=== PATIENT | female | born 1975 | race Caucasian/White ===

== ENCOUNTER → 2020-03-21 15:06 | Outpatient (BNVA) | payer OTHER, BC, SELFPAY | PROVIDERS: Family Provider Nurse Practitioner Family; PCP Nurse Practitioner Family; Visit Provider Internal Medicine Rheumatology | DX: K92.1 Melena (principal) | CPT/HCPCS: 36415; 80053; 85025 ==

== ENCOUNTER → 2021-01-01 13:18 | Outpatient (BNVA) | payer OTHER, BC, SELFPAY | PROVIDERS: Family Provider Nurse Practitioner Family; PCP Nurse Practitioner Family; Visit Provider Nurse Practitioner Family | DX: M54.5 Low back pain (principal); M54.2 Cervicalgia | CPT/HCPCS: 72040; 72100 ==

== ENCOUNTER → 2021-01-18 09:17 | Outpatient (BNVA) | payer OTHER, BC, SELFPAY | PROVIDERS: Family Provider Nurse Practitioner Family; PCP Nurse Practitioner Family; Visit Provider Nurse Practitioner Family | DX: Z13.6 Encounter for screening for cardiovascular disorders (principal) | CPT/HCPCS: 80061; 82947; 83036 ==

== ENCOUNTER → 2021-10-25 09:12 | Outpatient (BNVA) | payer OTHER, BC, SELFPAY | PROVIDERS: Family Provider Nurse Practitioner Family; PCP Nurse Practitioner Family; Visit Provider Nurse Practitioner Family | DX: D50.9 Iron deficiency anemia, unspecified (principal) | CPT/HCPCS: 80053; 82306; 82607; 82746; 83540; 85025 ==

== ENCOUNTER → 2021-11-12 12:53 | Day surgery (SDC) | payer OTHER, BC, SELFPAY ==
[2021-11-12 13:10] VITALS: BP 139/90; PULSE 81; RESP 18; TEMP 36.2; O2SAT 94
[2021-11-12] MEDS: sodium chloride 0.9% 1,000 ML 999 ML IV (13:25)
== END ==
PROVIDERS: PCP Nurse Practitioner Family; Visit Provider Nurse Practitioner Family
DX: E86.0 Dehydration (principal)
CPT/HCPCS: 80048; 81003; 85025; 87086; 96360; J7030

== ENCOUNTER 2021-11-15 12:30 | Outpatient (RCR) | payer OTHER, BC, SELFPAY ==
[2021-11-13] MEDS: sodium chloride 0.9% 1,000 ML 750 ML IV (13:32)
[2021-11-13 13:37] VITALS: BP 149/91; PULSE 82; RESP 18; TEMP 36.5; O2SAT 94
[2021-11-14 13:54] VITALS: BP 145/105; PULSE 80; RESP 18; TEMP 36.4; O2SAT 96
[2021-11-14] MEDS: sodium chloride 0.9% 1,000 ML 750 ML IV (14:05)
[2021-11-15 11:50] VITALS: BP 133/96; PULSE 95; RESP 18; TEMP 36.5; O2SAT 93
[2021-11-15] MEDS: sodium chloride 0.9% 1,000 ML 750 ML IV (11:51)
== END 2021-11-22 23:59 | disposition home or self-care (01) ==
LOC: GILAB 12:30
PROVIDERS: PCP Nurse Practitioner Family; Visit Provider Nurse Practitioner Family
DX: E86.0 Dehydration (principal)
CPT/HCPCS: 96360; 96361; J7030

== ENCOUNTER → 2021-11-19 16:35 | Outpatient (BNVA) | payer OTHER, BC, SELFPAY | PROVIDERS: PCP Nurse Practitioner Family; Visit Provider Nurse Practitioner Family | DX: E86.0 Dehydration (principal); N39.0 Urinary tract infection, site not specified | CPT/HCPCS: 81003 ==

== ENCOUNTER → 2021-12-04 16:46 | Outpatient (BNVA) | payer OTHER, BC, SELFPAY | PROVIDERS: PCP Nurse Practitioner Family; Visit Provider Nurse Practitioner Family | DX: R30.0 Dysuria (principal) | CPT/HCPCS: 81003 ==

== ENCOUNTER → 2022-01-06 10:19 | Outpatient (BNVA) | payer OTHER, BC, SELFPAY | PROVIDERS: PCP Nurse Practitioner Family; Visit Provider Family Medicine | DX: Z90.3 Acquired absence of stomach [part of] (principal) | CPT/HCPCS: 80053; 82306; 82607; 82746; 83540; 85025 ==

== ENCOUNTER → 2022-02-03 12:08 | Outpatient (BNVA) | payer OTHER, BC, SELFPAY | PROVIDERS: PCP Nurse Practitioner Family; Visit Provider Nurse Practitioner Family | DX: E86.0 Dehydration (principal) | CPT/HCPCS: 80048; 85025 ==

== ENCOUNTER 2022-02-20 13:18 | Outpatient (RCR) | payer OTHER, BC, SELFPAY ==
[2022-02-04] MEDS: dextrose 5% 1,000 ML 750 ML IV (13:15)
[2022-02-04 14:19] VITALS: BP 135/84; PULSE 81; RESP 18; TEMP 36.3; O2SAT 98
[2022-02-05] MEDS: dextrose 5% 1,000 ML 800 ML IV (12:44)
[2022-02-05 12:46] VITALS: BP 132/77; PULSE 87; RESP 18; TEMP 35.9; O2SAT 96
[2022-02-06 11:30] VITALS: BP 116/83; PULSE 79; RESP 18; TEMP 36.4; O2SAT 95
[2022-02-06] MEDS: dextrose 5% 1,000 ML 750 ML IV (11:35)
[2022-02-07] MEDS: dextrose 5% 1,000 ML 750 ML IV (10:13)
[2022-02-07 10:15] VITALS: BP 146/97; PULSE 66; RESP 18; TEMP 36.7; O2SAT 95
[2022-02-18] MEDS: dextrose 5% 1,000 ML 999 ML IV (13:35)
[2022-02-18 14:09] VITALS: BP 142/95; PULSE 83; RESP 18; TEMP 36.9; O2SAT 98
[2022-02-19] MEDS: dextrose 5% 1,000 ML 999 ML IV (11:49)
[2022-02-19 11:54] VITALS: BP 162/101; PULSE 78; RESP 18; TEMP 36.4; O2SAT 98
[2022-02-20] MEDS: dextrose 5% 1,000 ML 999 ML IV (13:57)
[2022-02-20 14:03] VITALS: BP 147/94; PULSE 77; RESP 18; TEMP 36.1; O2SAT 98
== END 2022-02-20 23:59 | disposition home or self-care (01) ==
LOC: GILAB 13:18
PROVIDERS: PCP Nurse Practitioner Family; Visit Provider Nurse Practitioner Family
DX: E86.0 Dehydration (principal)
CPT/HCPCS: 96360

== ENCOUNTER 2022-02-28 12:30 | Outpatient (RCR) | payer OTHER, BC, SELFPAY ==
[2022-02-21] MEDS: dextrose 5% 1,000 ML 750 ML IV (10:03)
[2022-02-21 10:07] VITALS: BP 145/88; PULSE 71; RESP 18; TEMP 36.8; O2SAT 96
[2022-02-24] MEDS: dextrose 5% 1,000 ML 999 ML IV (13:03)
[2022-02-24 13:11] VITALS: BP 134/96; PULSE 81; RESP 18; TEMP 36.4; O2SAT 99
[2022-02-25 12:45] VITALS: BP 142/92; PULSE 90; RESP 18; TEMP 37; O2SAT 95
[2022-02-25] MEDS: dextrose 5% 1,000 ML 999 ML IV (12:47)
[2022-02-26] MEDS: dextrose 5% 1,000 ML 750 ML IV (12:30)
[2022-02-26 12:39] VITALS: BP 151/99; PULSE 82; RESP 18; TEMP 36.6; O2SAT 93
[2022-02-27] MEDS: dextrose 5% 1,000 ML 750 ML IV (12:04)
[2022-02-27 12:08] VITALS: BP 146/103; PULSE 79; RESP 18; TEMP 36.3; O2SAT 99
[2022-02-28] MEDS: dextrose 5% 1,000 ML 750 ML IV (12:39)
[2022-02-28 12:42] VITALS: BP 159/102; PULSE 78; RESP 18; TEMP 36.7; O2SAT 97
== END 2022-03-22 23:59 | disposition home or self-care (01) ==
LOC: GILAB 12:30
PROVIDERS: PCP Nurse Practitioner Family; Visit Provider Family Medicine
DX: E86.0 Dehydration (principal)
CPT/HCPCS: 96360; 96365

== ENCOUNTER → 2022-05-12 12:36 | Outpatient (BNVA) | payer OTHER, BC, SELFPAY | PROVIDERS: PCP Nurse Practitioner Family; Visit Provider Family Medicine | DX: E86.0 Dehydration (principal); K52.9 Noninfective gastroenteritis and colitis, unspecified; A04.8 Other specified bacterial intestinal infections; K21.9 Gastro-esophageal reflux disease without esophagitis | CPT/HCPCS: 80053; 82784; 83516; 83630; 85025; 87338; 87493; 87506 ==

== ENCOUNTER 2022-05-22 13:12 | Outpatient (RCR) | payer OTHER, BC, SELFPAY ==
[2022-05-15 08:31] VITALS: BP 125/85; PULSE 74; RESP 18; TEMP 36.6; O2SAT 97
[2022-05-15] MEDS: dextrose 5% 1,000 ML 800 ML IV (08:32)
[2022-05-16] MEDS: dextrose 5% 1,000 ML 800 ML IV (08:06)
[2022-05-16 08:07] VITALS: BP 130/84; PULSE 79; RESP 18; TEMP 36.3; O2SAT 97
[2022-05-19] MEDS: dextrose 5% 1,000 ML 999 ML IV (12:42)
[2022-05-19 12:44] VITALS: BP 137/84; PULSE 61; RESP 18; TEMP 36.3; O2SAT 96
--- NOTE | 2022-05-20 08:56 | PC.NURSE ---
Pt called and unable to make it to appoinment today for hydration.
--- NOTE | 2022-05-21 09:53 | PC.NURSE ---
Pt called to cancel appointment due to conflict with work.
[2022-05-22] MEDS: dextrose 5% 1,000 ML 800 ML IV (12:55)
[2022-05-22 12:58] VITALS: BP 126/81; PULSE 81; RESP 18; TEMP 36.6; O2SAT 95
== END 2022-05-22 23:59 | disposition home or self-care (01) ==
LOC: GILAB 13:12
PROVIDERS: PCP Nurse Practitioner Family; Visit Provider Family Medicine
DX: E86.0 Dehydration (principal)
CPT/HCPCS: 96360; 96361

== ENCOUNTER 2022-05-28 13:00 | Outpatient (RCR) | payer OTHER, BC, SELFPAY ==
[2022-05-23] MEDS: dextrose 5% 1,000 ML 800 ML IV (10:15)
[2022-05-23 10:18] VITALS: BP 149/97; PULSE 74; RESP 18; TEMP 36.5; O2SAT 96
== END 2022-06-22 23:59 | disposition home or self-care (01) ==
LOC: GILAB 13:00
PROVIDERS: PCP Nurse Practitioner Family; Visit Provider Family Medicine
DX: E86.0 Dehydration (principal)
CPT/HCPCS: 96360; 96361

== ENCOUNTER → 2022-09-08 09:02 | Outpatient (BNVA) | payer OTHER, BC, SELFPAY | PROVIDERS: PCP Nurse Practitioner Family; Visit Provider Family Medicine | DX: E86.0 Dehydration (principal) | CPT/HCPCS: 80053; 82607; 83735; 85025 ==

== ENCOUNTER 2022-09-24 07:48 | Outpatient (CLI) | payer OTHER, BC, SELFPAY ==
--- NOTE | 2022-09-24 07:53 | MM_ITS ---
WS: [id number] DIAGNOSTIC BILATERAL DIGITAL BREAST TOMOSYNTHESIS MAMMOGRAPHY WITH CAD LEFT breast ultrasound, limited HISTORY: Palpable COMPARISON: None available. TECHNIQUE: Bilateral craniocaudad, mediolateral oblique, and mediolateral views are submitted with to mosynthesis and SM. Spot compression LEFT CC. Computer aided detection utilized. Breast composition: There are scattered areas of fibroglandular density. No suspicious masses or dist ortion. Palpable markers are placed in the upper outer LEFT breast at an anterior to middle depth. Th ere is no underlying abnormality identified. LEFT breast ultrasound, limited. Ultrasound of the LEFT breast is directed towards the upper outer quadrant. There is no mass identifi ed. Patient directed credit administration manager to the palpable areas. Normal fibroglandular tissue. MM/[place] [id number] IMPRESSION: BI-RADS: 2-Benign FOLLOW UP: 1 Year Follow-up
--- NOTE | 2022-09-24 08:44 | US_ITS ---
WS: [id number] DIAGNOSTIC BILATERAL DIGITAL BREAST TOMOSYNTHESIS MAMMOGRAPHY WITH CAD LEFT breast ultrasound, limited HISTORY: Palpable COMPARISON: None available. TECHNIQUE: Bilateral craniocaudad, mediolateral oblique, and mediolateral views are submitted with to mosynthesis and SM. Spot compression LEFT CC. Computer aided detection utilized. Breast composition: There are scattered areas of fibroglandular density. No suspicious masses or dist ortion. Palpable markers are placed in the upper outer LEFT breast at an anterior to middle depth. Th ere is no underlying abnormality identified. LEFT breast ultrasound, limited. Ultrasound of the LEFT breast is directed towards the upper outer quadrant. There is no mass identifi ed. Patient directed logging tractor operator to the palpable areas. Normal fibroglandular tissue. US/US breast LT limited* [id number] IMPRESSION: BI-RADS: 2-Benign FOLLOW UP: 1 Year Follow-up
== END 2022-09-24 07:49 | disposition home or self-care (01) ==
LOC: RAD 07:49
PROVIDERS: PCP Family Medicine; Visit Provider Family Medicine
DX: N63.20 Unspecified lump in the left breast, unspecified quadrant (principal)
CPT/HCPCS: 76642; 77062; 77063; 77067

== ENCOUNTER → 2022-10-14 08:33 | Outpatient (BNVA) | payer OTHER, BC, SELFPAY | PROVIDERS: PCP Family Medicine; Visit Provider Nurse Practitioner Family | DX: M25.50 Pain in unspecified joint (principal); R23.3 Spontaneous ecchymoses; R53.83 Other fatigue | CPT/HCPCS: 80053; 82306; 82607; 82728; 82746; 83550; 83735; 84443; 84550; 85025; 85651; 86038; 86140; 86200; 86431 ==

== ENCOUNTER 2022-10-22 15:00 | Outpatient (RCR) | payer OTHER, BC, SELFPAY ==
[2022-10-21] MEDS: sodium chloride 0.9% 1,000 ML 999 ML IV (13:40)
[2022-10-21 13:56] VITALS: BP 141/101; PULSE 95; RESP 18; TEMP 36.8; O2SAT 96
[2022-10-22] MEDS: sodium chloride 0.9% 1,000 ML 999 ML IV (15:30)
[2022-10-22 15:31] VITALS: BP 120/81; PULSE 64; RESP 18; TEMP 36.7; O2SAT 97
== END 2022-10-22 23:59 | disposition home or self-care (01) ==
LOC: GILAB 15:00
PROVIDERS: PCP Family Medicine; Visit Provider Family Medicine
DX: E86.0 Dehydration (principal)
CPT/HCPCS: 36569; 96360; C1751; J7030

== ENCOUNTER 2022-10-24 13:00 | Outpatient (RCR) | payer OTHER, BC, SELFPAY ==
[2022-10-23] MEDS: sodium chloride 0.9% 1,000 ML 999 ML IV (10:08)
[2022-10-23 10:10] VITALS: BP 124/97; PULSE 74; RESP 18; TEMP 36.4; O2SAT 98
[2022-10-24] MEDS: sodium chloride 0.9% 1,000 ML 999 ML IV (12:43)
[2022-10-24 12:45] VITALS: BP 148/95; PULSE 59; RESP 18; TEMP 36.9; O2SAT 94
--- NOTE | 2022-10-24 14:02 | PC.NURSE ---
Midline cath to right upper arm discontinued. 10 cm removed. Cath intact. Pressure held for approx 5 minutes. No signs of bleeding or hematoma noted. Pt instructed on S&S of infection and bleeding and to return to ER or contact PCP for concerns.
== END 2022-11-22 23:59 | disposition home or self-care (01) ==
LOC: GILAB 13:00
PROVIDERS: PCP Family Medicine; Visit Provider Family Medicine
DX: E86.0 Dehydration (principal)
CPT/HCPCS: 96360; J7030

== ENCOUNTER → 2022-12-04 13:25 | Outpatient (BNVA) | payer OTHER, BC, SELFPAY | PROVIDERS: PCP Family Medicine; Visit Provider Family Medicine | DX: E86.0 Dehydration (principal); E53.8 Deficiency of other specified B group vitamins | CPT/HCPCS: 80053; 82607; 85025 ==

== ENCOUNTER → 2023-01-02 10:37 | Outpatient (BNVA) | payer OTHER, BC, SELFPAY | PROVIDERS: PCP Family Medicine; Visit Provider Family Medicine | DX: Z13.6 Encounter for screening for cardiovascular disorders (principal) | CPT/HCPCS: 80061; 82947; 83036 ==

== ENCOUNTER 2023-01-12 15:10 | Outpatient (CLI) | payer OTHER, BC, SELFPAY ==
[2023-01-12] MEDS: iohexol 350 mg/mL 500 mL Btl (per mL) IV (15:35)
[2023-01-12] MEDS: iohexol 350 mg/mL 500 mL Btl (per mL) PO (15:36)
--- NOTE | 2023-01-12 16:00 | CT_ITS ---
WS: [id number] CT ABDOMEN NON-CONTRAST PLUS CONTRAST TECHNIQUE: Noncontrast CT of the abdomen and contrast-enhanced CT of the abdomen with coronal and sag ittal reformatted images. CLINICAL INFORMATION: extreme right abdominal pain COMPARISON: None. DLP: 1012.[address] scans at [facility] [place] use at least one of these dose optimization techniques: automated e xposure control; mA and/or kV adjustment per patient size (includes targeted exams where dose is matc hed to clinical indication); or iterative reconstruction. FINDINGS: Mild diffuse fatty infiltration liver. Prior cholecystectomy. Small amount of biliary air likely ashkan gn. Mild dilatation of the common bile duct likely physiologic postcholecystectomy. This tapers yamilka lly at the pancreatic head. Common bile duct measures 7.5 mm. Normal pancreatic head. Normal portal v ein and splenic vein. Splenomegaly measuring 13.3 cm [id number]. Prior postoperative changes gastri c sleeve procedure. Small esophageal hiatal hernia. Contrast is seen in the duodenum and small bowel. Adrenal glands are normal. No hydronephrosis in either kidney. Normal renal parenchymal enhancement. No proximal obstructing renal or ureteral calculi. Tiny fat-containing umbilical hernia. Normal calib er upper abdominal aorta. Celiac and SMA are patent. CT/CT abdomen wo/w con [id number] IMPRESSION: 1. Prior cholecystectomy. Small amount of biliary air likely benign. 2. Mild dilatation of the common bile duct likely physiologic postcholecystect maxi. This can be further evaluated MRCP concern for choledocholithiasis. 3. Prior gastric sleeve repair with small esophageal hiatal hernia. Contrast i s seen within the stomach and small bowel. 4. No hydronephrosis in either kidney. Normal renal parenchymal enhancement. 5. Mild hepatomegaly and splenomegaly. Spleen measures 13.3 cm [id number]. 6. No other acute findings.
== END 2023-01-12 15:11 | disposition home or self-care (01) ==
LOC: RAD 15:10
PROVIDERS: PCP Family Medicine; Visit Provider Family Medicine
DX: Z90.49 Acquired absence of other specified parts of digestive tract (principal); K44.9 Diaphragmatic hernia without obstruction or gangrene; R16.0 Hepatomegaly, not elsewhere classified; R16.1 Splenomegaly, not elsewhere classified
CPT/HCPCS: 74170; Q9967

== ENCOUNTER 2023-01-27 13:23 | Outpatient (CLI) | payer OTHER, BC, SELFPAY ==
--- NOTE | 2023-01-27 13:45 | MR_ITS ---
WS: [id number] MRCP (MAGNETIC RESONANCE CHOLANGIOPANCREATOGRAPHY) HISTORY: enlarged bile duct on ct. COMPARISON: CT 01/12/2023 TECHNIQUE: Multiple sequences are performed to evaluate the intra and extrahepatic ducts. Prior cholecystectomy. Common bile duct is mildly dilated throughout its course measuring up to 10 mm . No intraluminal filling defect. Normal tapering of the common bile duct towards the ampulla of Vate r. The pancreatic duct is not dilated. No significant intrahepatic bile duct dilatation. Normal size liver and spleen. No hepatic masses. Kidneys are normal size. No renal mass. No adrenal abnormality. MR/MR MRCP [id number] IMPRESSION: 1. Mildly dilated common bile duct measures up to 10 mm. Probably physiologic and related to the cholecystectomy. 2. There is no pancreatic duct dilatation. No intraluminal mass or stone in th e common bile duct. 3. Prior cholecystectomy.
== END 2023-01-27 13:24 | disposition home or self-care (01) ==
LOC: RAD 13:32
PROVIDERS: PCP Family Medicine; Visit Provider Family Medicine
DX: K83.8 Other specified diseases of biliary tract (principal); Z90.49 Acquired absence of other specified parts of digestive tract
CPT/HCPCS: 74181

== ENCOUNTER 2023-02-20 10:35 | Emergency (ER) | payer OTHER, BC, SELFPAY ==
[2023-02-20 10:47] VITALS: BP 152/106; PULSE 86; RESP 17; TEMP 36.8; O2SAT 97; BMI 34.0
--- NOTE | 2023-02-20 11:01 | W.ED.ABDPA2 ---
HPI - Abdominal Pain General: Chief Complaint: Abdominal Pain Stated Complaint: possible kidney stones Time Seen by Provider: 02/20/23 11:00 History of Present Illness: Ms. Gaviria is a 47-year-old lady history of abdominal surgeries presented to the emergency department for concern over possible kidney stone or UTI. She reports yesterday noticing mild discomfort with urinating however began to have severe right flank and back pain starting about 7:30 PM without known specific provoking event. She had urinary hesitancy and dysuria associated with this. She has also had nausea associated with the pain. She tried [id number] medications without significant relief and was seen in clinic this morning and found to have blood in urine as well as evidence of urinary tract infection and referred to the emergency department for further evaluation. She denies history of kidney stones. She did hear a possible stone being passed into the toilet earlier today but is unsure. No other specific changes in health, exacerbating, or alleviating factors identified. Onset (ago): hour(s) Pain Consistency: constant Location: R flank Severity: severe Quality: aching and sharp Radiation: RLQ Migration to: no migration Exacerbating factors: movement Relieving factors: nothing Associated Symptoms: Reports diarrhea (Chronic, unchanged) and nausea; Denies chills, fever(s) and vomiting Treatments prior to arrival: other (otc AZO) Review of Systems General: Reports: 10 or more systems reviewed and unremarkable except in HPI and below Const: Denies: fever(s) or chills GI: Reports: nausea and diarrhea (Chronic, unchanged); Denies: vomiting PFSH ED PFSH: Surgical History History of cholecystectomy History of hernia repair History of hysterectomy Family History Father Cancer colon Grandmother No problems noted. Social History Smoking and tobacco status: never smoked Second hand smoke exposure: No Smoking risk assessment/counseling performed?: No Alcohol intake: unknown Desire information about alcohol rehabilitation?: No Counseling given: No Desire information about substance/drug rehabilitation?: No Counseling given: No Adopted: No Caregiver/support person: No Lives independently: Yes Household members: spouse and children Housing: House Marital status: Number of children: 3 service: No Current occupational status: employed [place] [employer] [place]ets and animals: Yes Pets & animals: dog(s) Current gender identity: Female Physical Exam Const: COMMON NORMALS: alert GENERAL APPEARANCE: cooperative and well developed HENMT: COMMON NORMALS: normocephalic and atraumatic HEAD & SCALP: normocephalic and atraumatic Eye: COMMON NORMALS: conjunctivae normal CONJUNCTIVA: Yes conjunctivae normal SCLERA: sclerae normal Neck/C-Spine: COMMON NORMALS: supple GENERAL: Yes trachea midline Resp: COMMON NORMALS: clear to auscultation bilaterally EFFORT & INSPECTION: Yes able to speak in complete sentences AUSCULTATION: clear to auscultation bilaterally Cardio: COMMON NORMALS: regular rate and regular rhythm RATE: regular rate RHYTHM: regular rhythm GI: COMMON NORMALS: Soft to palpation PALPATION: Yes Soft to palpation, Yes Tenderness to palpation present (GI) (Right flank and right lower quadrant), No Guarding due to palpation present (GI) and No Rigid due to palpation : BLADDER/KIDNEY EXAM: Yes CVA tenderness Back/Pelvis: GENERAL BACK: Yes CVA tenderness CVA tenderness: right Extremity: GENERAL: Yes normal exam except as noted and No edema Neuro: COMMON NORMALS: moves all extremities SENSORIUM/ORIENTATION: Yes alert and No Orientation impaired Psych: COMMON NORMALS: mental status grossly normal and Normal thought process present THOUGHT PROCESS: Normal thought process present Course Vital Signs: Vital signs: Vital Signs Temperature 98.3 F 02/20/23 10:47 Pulse Rate 84 02/20/23 15:27 Respiratory Rate 18 02/20/23 15:27 Blood Pressure 138/99 02/20/23 13:09 Pulse Oximetry 99 02/20/23 15:27 Oxygen Delivery Me thod Room Air 02/20/23 13:09 MDM - Abdominal Pain Medical Decision Making 47-year-old lady presenting to the emergency department for abdominal concerns. Exam as above, abdominal tenderness without evidence of acute surgical abdomen. Patient is nontoxic. Labs notable for hemoconcentration, no leukocytosis. Metabolic panel without acute derangement to explain symptoms. Alk phos similarly elevated, normal lipase. Urinalysis with mild squamous epithelial contamination though may be still concerning for UTI. Given exam and clinical history CT imaging is appropriate. CT demonstrates hepatomegaly and splenomegaly, normal appendix, no hydronephrosis or kidney stone. Patient treated during ED course with antiemetic, analgesia, IV fluids. She was also given antibiotics. Ultimately she felt improved and was able to tolerate p.o. intake. Most likely etiology of patient symptoms is pyelonephritis. The results of ED evaluation were discussed with the patient including prescriptions and/or symptomatic cares (if applicable) including appropriate and responsible use, followup plan, and return precautions. The patient verbalized understanding and felt safe for discharge. Medical Records I reviewed the patient's medical records. Lab Data I reviewed the patient's lab results. 02/20/23 11:10 02/20/23 11:10 Labs/Radiology: Radiology Impressions Abdomen/Pelvis CT 02/20/23 12:29 IMPRESSION: 1. No obstructing renal or ureteral calculi. No hydronephrosis. 2. Hepatomegaly with splenomegaly 3. Prior cholecystectomy with prominent common bile duct unchanged. 4. Prior gastric sleeve procedure with small esophageal hiatal hernia. 5. Prior hysterectomy. 6. Normal appendix in the RIGHT lower quadrant. Laboratory Results WBC 8.3 10^3/uL (4.0-10.0) 02/20/23 11:10 RBC 5.04 10^6/uL (4.1-5.3) 02/20/23 11:10 Hgb 15.5 g/dL (11.5-15.3) H 02/20/23 11:10 Hct 47.7 % (37.0-47.0) H 02/20/23 11:10 MCV 94.6 fl (81-99) 02/20/23 11:10 MCH 30.8 pg (28.0-34.0) 02/20/23 11:10 MCHC 32.5 g/dL (30.0-36.0) 02/20/23 11:10 RDW 12.7 % (12.1-15.1) 02/20/23 11:10 Plt Count 299 10^3/cmm (130-400) 02/20/23 11:10 MPV 9.6 fL (7.4-10.4) 02/20/23 11:10 Neut % (Auto) 74.2 % 02/20/23 11:10 Lymph % (Auto) 18.0 % 02/20/23 11:10 [place] % (Auto) 6.5 % 02/20/23 11:10 Eos % (Auto) 0.6 % 02/20/23 11:10 Baso % (Auto) 0.5 % 02/20/23 11:10 Neut # (Auto) 6.13 10^3/uL (1.8-7.7) 02/20/23 11:10 Lymph # (Auto) 1.5 10^3/uL (0.8-4.8) 02/20/23 11:10 [place] # (Auto) 0.5 10^3/uL (0.2-0.9) 02/20/23 11:10 Eos # (Auto) 0.1 10^3/uL (0.0-0.8) 02/20/23 11:10 Baso # (Auto) 0.0 10^3/uL (0.0-0.1) 02/20/23 11:10 Nucleated RBC % (auto) 0 % 02/20/23 11:10 Nucleated RBCs # 0.0 /100WBC 02/20/23 11:10 Sodium 142 mmol/L (136-145) 02/20/23 11:10 Potassium 4.3 mmol/L (3.5-5.1) 02/20/23 11:10 Chloride 104 mmol/L (98-107) 02/20/23 11:10 Carbon Dioxide 27 mmol/L (22-29) 02/20/23 11:10 Anion Gap 15.3 (5-19) 02/20/23 11:10 BUN 10 mg/dL (6-20) 02/20/23 11:10 Creatinine 0.7 mg/dL (0.5-0.9) 02/20/23 11:10 GFR Calculation 89.3 mL/min (90-130) L 02/20/23 11:10 Glucose 90 mg/dL (65-115) 02/20/23 11:10 Calculated Osmolality 293 mOsm/kg (285-295) 02/20/23 11:10 Calcium 9.5 mg/dL (8.5-10.5) 02/20/23 11:10 Total Bilirubin 0.6 mg/dL (0.15-1.2) 02/20/23 11:10 AST 26 U/L (0-32) 02/20/23 11:10 ALT 20 U/L (0-33) 02/20/23 11:10 Alkaline Phosphatase 124 U/L (35-105) H 02/20/23 11:10 Total Protein 7.0 g/dL (6.6-8.7) 02/20/23 11:10 Albumin 4.1 g/dL (3.5-5.2) 02/20/23 11:10 Globulin 2.9 g/dL (1.3-4.6) 02/20/23 11:10 Lipase 22 U/L (13-60) 02/20/23 11:10 HCG, Qual Negative (Negative) 02/20/23 11:10 Urine Color Colorless (Yellow) 02/20/23 11:31 Urine Appearance Cloudy (CLEAR) A 02/20/23 11:31 Urine pH 8 (5-7) H 02/20/23 11:31 Ur Specific [place] 1.015 (1.005-1.030) 02/20/23 11:31 Urine Protein Trace (Negative) 02/20/23 11:31 Urine Glucose (UA) Norm (Normal) 02/20/23 11:31 Urine Ketones Negative (Negative) 02/20/23 11:31 Urine Blood Trace (Negative) H 02/20/23 11:31 Urine Nitrate Positive (Negative) H 02/20/23 11:31 Urine Bilirubin 1+ (Negative) H 02/20/23 11:31 Prot Sulfosalicylic Acd Positive (Negative) 02/20/23 11:31 Urine Urobilinogen 1 mg/dL (Negative) H 02/20/23 11:31 Ur Leukocyte Esterase 1+ (Negative) H 02/20/23 11:31 Urine RBC 10-15 /hpf (0-2) H 02/20/23 11:31 Urine WBC 25-40 /hpf (0-5) H 02/20/23 11:31 Ur Squamous Epith Cells 5-10 /hpf (0-5) H 02/20/23 11:31 Amorphous Sediment Not Reportable 02/20/23 11:31 Urine Bacteria 2+ /hpf (NONE) H 02/20/23 11:31 Discharge Plan Discharge Patient Disposition: Home Clinical Impression: Pyelonephritis of right kidney Condition: Stable Prescriptions: New ondansetron 4 mg tablet,disintegrating 4 mg PO Q8H PRN (Reason: nausea and vomiting) Qty: 15 0RF No Action fexofenadine-pseudoephedrine [Carla-D 12 Hour] 60-120 mg tablet extended release 12 hr 1 tab PO Q12H PRN (Reason: allergy symptoms) Qty: 30 0RF Proctofoam HC 1-1 % foam 1 applic MD QID PRN (Reason: itching) Qty: 10 11RF (DME) NS IV to be infused over 2-4 hours. give 1 L a day for 5 days. See Rx Instructions .Route .MEDSUPPLY Qty: 5 0RF Rx Instructions: Please place Picc line for the fluids. alprazolam [Xanax] 0.5 mg tablet 0.5 mg PO BID PRN (Reason: anxiety) Qty: 14 0RF ondansetron HCl 8 mg tablet See Rx Instructions .ROUTE .COMPLEX Qty: 30 2RF Dose Instruction: TAKE ONE TABLET BY MOUTH EVERY 8 HOURS NEEDED FOR NAUSEA AND VOMITING. Rx Instructions: TAKE ONE TABLET BY MOUTH EVERY 8 HOURS NEEDED FOR NAUSEA AND VOMITING. valacyclovir 1 gram tablet 1,000 mg PO TID Qty: 30 1RF gabapentin 100 mg capsule 100 mg PO TID 30 Days Qty: 90 3RF diphenoxylate-atropine 2.5-0.025 mg Tablet 1 tab PO QID PRN (Reason: Diarrhea) phenazopyridine 100 mg Tablet 100 mg PO TID nystatin 100,000 unit/gram cream 1 applic topical DAILY PRN (Reason: Rash) Discharge Orders: Discharge ED (Routine); Ordered 02/20/23 Ordered By: Saurabh Miranda Referrals: Pauly Fischer MD [Primary Care Provider] - Discharge Diet: Usual diet Discharge Activity: Increase activity as tolerated Patient Instructions: Urinary Tract Infection in Women (ED), Kidney Infection (ED), Opioid Safety Activity Restrictions/Additional Instructions: Thank you for visiting the emergency department. You were seen and evaluated for flank pain. The most likely cause of your symptoms is urinary tract infection with involvement of the kidney. This will be treated with antibiotics. I will also prescribe pain medications, use these cautiously as discussed, and antinausea medication. You may use elox-ntr-ymdyfls medications such as acetaminophen and ibuprofen for pain however please do not exceed the daily recommended dosage as listed on the packaging and please keep in mind that many namebrand medications contain the same active ingredients. Please avoid these medications if previously instructed to do so by another physician due to other underlying medical condition. Please follow-up with your primary care provider. Return to the emergency department for worsening symptoms, fevers, inability to urinate, or anything else that you are concerned about and feel needs emergency department evaluation. Coding Level of Care Code ED Central Office Equipment Engineer for Amada Ramirez
[2023-02-20 11:25] LABS: Basophils % 0.5 %; Eosinophils # 0.1 10^3/uL (0.0-0.8); Eosinophils % 0.6 %; Hematocrit 47.7 % (37.0-47.0); Hemoglobin 15.5 g/dL (11.5-15.3); Lymphocytes # 1.5 10^3/uL (0.8-4.8); Mean Corpuscular HGB Conc 32.5 g/dL (30.0-36.0); Mean Corpuscular Hemoglobin 30.8 pg (28.0-34.0); Mean Corpuscular Volume 94.6 fl (81-99); Mean Platelet Volume 9.6 fL (7.4-10.4); Monocytes # 0.5 10^3/uL (0.2-0.9); Monocytes % 6.5 %; Neutrophils # 6.13 10^3/uL (1.8-7.7); Neutrophils % 74.2 %; Nucleated Red Blood Cells % 0 %; Platelet Count 299 10^3/cmm (130-400); Red Blood Count 5.04 10^6/uL (4.1-5.3); Red Cell Distribution Width 12.7 % (12.1-15.1); White Blood Count 8.3 10^3/uL (4.0-10.0)
[2023-02-20] MEDS: sodium chloride 0.9% 1,000 ML 999 ML IV (11:25)
[2023-02-20] MEDS: ketorolac 30 mg/mL INJ 15 MG IVP (11:26)
[2023-02-20] MEDS: tamsulosin 0.4 mg Capsule PO (11:26)
[2023-02-20] MEDS: ondansetron 2 mg/ML SDV 2 mL 4 MG IVP ×2 (11:26→14:08)
[2023-02-20] MEDS: morphine 4 mg/mL SDV 1 mL IVP (11:26)
[2023-02-20 11:30] VITALS: PULSE 87; RESP 16; O2SAT 97
[2023-02-20 11:40] LABS: Alanine Aminotransferase 20 U/L (0-33); Albumin Level 4.1 g/dL (3.5-5.2); Alkaline Phosphatase 124 U/L (35-105); Anion Gap 15.3 (5-19); Aspartate Amino Transferase 26 U/L (0-32); Blood Urea Nitrogen 10 mg/dL (6-20); Calcium 9.5 mg/dL (8.5-10.5); Carbon Dioxide 27 mmol/L (22-29); Chloride 104 mmol/L (98-107); Globulin 2.9 g/dL (1.3-4.6); Glomerular Filtration Rate 89.3 mL/min (90-130); Glucose 90 mg/dL (65-115); Lipase 22 U/L (13-60); Osmolality Calculated 293 mOsm/kg (285-295); Potassium 4.3 mmol/L (3.5-5.1); Sodium 142 mmol/L (136-145); Total Bilirubin 0.6 mg/dL (0.15-1.2)
[2023-02-20 11:46] LABS: HCG, Serum Qual Negative (Negative)
[2023-02-20] MEDS: fentaNYL 50 mcg/mL INJ 2mL IVP ×2 (11:46→13:15)
[2023-02-20 12:25] LABS: Add Urine Microscopic? YES; Bilirubin Urine 1+ (Negative); Blood Urine Trace (Negative); Glucose Urine UA Norm (Normal); Ketones Urine Negative (Negative); Leukocyte Esterase Urine 1+ (Negative); Nitrate Urine Positive (Negative); Protein Urine Trace (Negative); Specific Gravity, Urine 1.015 (1.005-1.030); Urine Appearance Cloudy (CLEAR); Urine Color Colorless (Yellow); Urobilinogen Urine 1 mg/dL (Negative); pH Urine 8 (5-7)
[2023-02-20 12:26] LABS: Add Urine Culture? Yes; Bacteria Urine 2+ /hpf; Sulfosalicylic Acid Urine Positive (Negative); WBC Urine 25-40 /hpf (0-5)
--- NOTE | 2023-02-20 12:29 | CT_ITS ---
WS: [id number] CT ABDOMEN PELVIS TECHNIQUE: Noncontrast CT of the abdomen and pelvis with coronal and sagittal reformatted images. CLINICAL INFORMATION: R flank pain, hematuria COMPARISON: CT abdomen January 12, 2023. MRCP January 27, 2023. DLP: 846.[address] scans at [facility] use at least one of these dose optimization techniques: automated e xposure control; mA and/or kV adjustment per patient size (includes targeted exams where dose is matc hed to clinical indication); or iterative reconstruction. FINDINGS: Prior cholecystectomy. Prior gastric sleeve procedure with small esophageal hiatal hernia. Mild hepat omegaly and splenomegaly. Hysterectomy. Tiny fat-containing umbilical hernia. Lung bases are well aer ated. Noncontrast pancreas appears normal. Prominent common bile duct unchanged from previous likely physiologic postcholecystectomy. Adrenal glands are normal. No hydronephrosis in either kidney. Sigmoid diverticulosis. Normal appendix in the RIGHT lower quadrant. No free fluid in the abdomen or pelvis. Normal caliber abdominal aorta. CT/CT kidney stone [id number] IMPRESSION: 1. No obstructing renal or ureteral calculi. No hydronephrosis. 2. Hepatomegaly with splenomegaly 3. Prior cholecystectomy with prominent common bile duct unchanged. 4. Prior gastric sleeve procedure with small esophageal hiatal hernia. 5. Prior hysterectomy. 6. Normal appendix in the RIGHT lower quadrant.
[2023-02-20 13:09] VITALS: BP 138/99; PULSE 83; RESP 16; O2SAT 93
[2023-02-20] MEDS: oxyCODONE 5 mg IR Tab/Cap PO (13:43)
[2023-02-20] MEDS: ciprofloxacin 400 MG/200 ML PREMIX 200 MG IV (13:49)
[2023-02-20 15:27] VITALS: PULSE 84; RESP 18; O2SAT 99
== END 2023-02-20 15:28 | disposition home or self-care (01) ==
PROVIDERS: Emergency Provider Emergency Medicine; PCP Family Medicine
DX: N12 Tubulo-interstitial nephritis, not specified as acute or chronic (principal); Z98.84 Bariatric surgery status
CPT/HCPCS: 74176; 80053; 81001; 83690; 84703; 85025; 87040; 87077; 87086; 87186; 96365; 96375; 96376; 99285; J0744; J1885; J2270; J2405; J3010; J7030

== ENCOUNTER → 2023-04-24 08:51 | Outpatient (BNVA) | payer OTHER, BC, SELFPAY | PROVIDERS: PCP Family Medicine; Visit Provider Nurse Practitioner Family | DX: R53.83 Other fatigue (principal); Z90.3 Acquired absence of stomach [part of]; Z13.220 Encounter for screening for lipoid disorders | CPT/HCPCS: 80053; 80061; 82306; 82607; 82746; 83550; 84443; 85025 ==

== ENCOUNTER → 2023-06-10 16:56 | Outpatient (BNVA) | payer OTHER, SELFPAY | PROVIDERS: PCP Family Medicine; Visit Provider Emergency Medicine | DX: M79.631 Pain in right forearm (principal) | CPT/HCPCS: 73090 ==

== ENCOUNTER 2023-06-12 06:00 | Outpatient (CLI) | payer OTHER, SELFPAY | END 2023-06-12 06:01 | LOC: SOT 06-15 09:12 | PROVIDERS: PCP Family Medicine; Visit Provider Student in an Organized Health Care Education/Training Program | DX: S59.911A Unspecified injury of right forearm, initial encounter (principal); X58.XXXA Exposure to other specified factors, initial encounter; Z46.89 Encounter for fitting and adjustment of other specified devices | CPT/HCPCS: 97760; L3984 ==

== ENCOUNTER → 2023-06-12 09:44 | Outpatient (BNVA) | payer OTHER, SELFPAY | PROVIDERS: PCP Family Medicine; Visit Provider Student in an Organized Health Care Education/Training Program | DX: S50.11XA Contusion of right forearm, initial encounter (principal); W01.0XXA Fall on same level from slipping, tripping and stumbling without subsequent striking against object, initial encounter | CPT/HCPCS: 73030; 73090 ==

== ENCOUNTER → 2023-06-15 11:44 | Outpatient (BNVA) | payer OTHER, BC, SELFPAY | PROVIDERS: PCP Family Medicine; Visit Provider Family Medicine | DX: Z90.3 Acquired absence of stomach [part of] (principal); Z79.899 Other long term (current) drug therapy | CPT/HCPCS: 80053; 82306; 82607; 82746; 83550; 85025 ==

== ENCOUNTER → 2023-06-22 08:54 | Outpatient (BNVA) | payer OTHER, BC, SELFPAY | PROVIDERS: PCP Family Medicine; Visit Provider Student in an Organized Health Care Education/Training Program | DX: S50.10XA Contusion of unspecified forearm, initial encounter (principal); W01.0XXA Fall on same level from slipping, tripping and stumbling without subsequent striking against object, initial encounter; Y92.481 Parking lot as the place of occurrence of the external cause | CPT/HCPCS: 73090 ==

== ENCOUNTER 2023-06-29 06:00 | Outpatient (RCR) | payer OTHER, BC, SELFPAY | END 2023-07-23 23:59 | disposition home or self-care (01) | LOC: TOT 06:00 | PROVIDERS: Visit Provider Student in an Organized Health Care Education/Training Program | DX: M25.531 Pain in right wrist (principal); M25.521 Pain in right elbow | CPT/HCPCS: 97124; 97165 ==

== ENCOUNTER → 2023-07-20 08:24 | Outpatient (BNVA) | payer OTHER, BC, SELFPAY | PROVIDERS: Visit Provider Specialist | DX: S50.10XA Contusion of unspecified forearm, initial encounter (principal); W01.0XXA Fall on same level from slipping, tripping and stumbling without subsequent striking against object, initial encounter; Y92.481 Parking lot as the place of occurrence of the external cause | CPT/HCPCS: 73090 ==

== ENCOUNTER 2023-07-24 06:00 | Outpatient (RCR) | payer OTHER, BC, SELFPAY | END 2023-08-22 23:59 | disposition home or self-care (01) | LOC: TOT 06:00 | PROVIDERS: PCP Family Medicine; Visit Provider Student in an Organized Health Care Education/Training Program | DX: M25.531 Pain in right wrist (principal); M25.521 Pain in right elbow | CPT/HCPCS: 97110; 97124 ==

== ENCOUNTER 2023-08-23 06:00 | Outpatient (RCR) | payer OTHER, BC, SELFPAY | END 2023-09-22 23:59 | disposition home or self-care (01) | LOC: TOT 06:00 | PROVIDERS: PCP Family Medicine; Visit Provider Student in an Organized Health Care Education/Training Program | DX: M25.531 Pain in right wrist (principal); M25.521 Pain in right elbow | CPT/HCPCS: 97110; 97124 ==

== ENCOUNTER → 2023-08-24 14:11 | Outpatient (BNVA) | payer BC, SELFPAY | PROVIDERS: PCP Family Medicine; Visit Provider Family Medicine | DX: E86.0 Dehydration (principal); N39.0 Urinary tract infection, site not specified | CPT/HCPCS: 81003; 85025; 87077; 87086; 87184 ==

== ENCOUNTER 2023-08-26 11:04 | Emergency (ER) | payer BC, SELFPAY ==
[2023-08-26 11:41] VITALS: BP 147/88; PULSE 69; RESP 18; TEMP 36.8; O2SAT 100; BMI 29.9
--- NOTE | 2023-08-26 12:23 | ED_ITS ---
HPI - Female Genitourinary General: Chief complaint: Urogenital-Female Stated complaint: painful urination/weakness Time Seen by Provider: 08/26/23 12:04 Source: patient Mode of arrival: ambulatory Limitations: no limitations History of Present Illness: Patient is a nice 48-year-old female presents to ED today stating she feels dehydrated. Patient states she has a history of a gastric sleeve and often gets behind on fluids. Patient states she has been under a lot of stress recently as she was just laid off from her job. She feels like she has not been drinking as much as she should. Patient states she was recently diagnosed with UTI through her primary care provider and placed on Bactrim. She states she was having urinary burning and pressure. She has been on approximately 48 hours of Bactrim therapy. Denies fevers/back/flank pain. She is not having any abdominal pain. She arrives in NAD with stable vital signs. MD elicited complaint: other (painful urination/pressure, feeling dehydrated ) Severity: moderate Vaginal discharge: none Vaginal bleeding: none Exacerbating factors: urination Relieving factors: none Associated symptoms: Deny abdominal pain, headache(s), nausea or syncope Treatment prior to arrival: other (antibiotics) Patient : No Review of Systems Const: Reports: malaise; Denies: fever(s), chills, body aches or fatigue Eyes: Denies: change in vision or blurry vision Card: Denies: chest pain, palpitations, irregular heart rhythm, lightheadedness, syncope or dyspnea on exertion Resp: Denies: dyspnea, productive cough or pain on inspiration GI: Denies: abdominal pain, nausea, vomiting, heartburn or diarrhea : Reports: dysuria and urinary urgency; Denies: flank pain, difficulty voiding, urinary frequency, urinary hesitancy or pelvic pain Musc: Denies: neck pain, back pain, extremity pain, extremity swelling or joint pain Skin/Breast: Denies: rash Neuro: Denies: headache(s), numbness in extremities, weakness in extremities or sensory changes Psych: Reports: anxiety PFSH ED PFSH: Surgical History History of cholecystectomy History of hernia repair History of hysterectomy Family History Father Cancer colon Grandmother No problems noted. Social History Smoking and tobacco status: never smoked Second hand smoke exposure: No Smoking risk assessment/counseling performed?: No Alcohol intake: unknown Desire information about alcohol rehabilitation?: No Counseling given: No Substance/Drug Use: never Desire information about substance/drug rehabilitation?: No Counseling given: No Adopted: No Caregiver/support person: No Lives independently: Yes Household members: spouse and children Housing: House Marital status: Number of children: 3 service: No Current occupational status: employed [place] [employer] [place]ets and animals: Yes Pets & animals: dog(s) Do you think of yourself as: Straight/Heterosexual Current gender identity: Female Physical Exam Const: COMMON NORMALS: no acute distress, patient oriented x3, no limitations, healthy appearing, alert and well nourished GENERAL APPEARANCE: cooperative ORIENTATION/CONSCIOUSNESS: Yes awake, Yes oriented to person, Yes oriented to place and Yes oriented to time HENMT: COMMON NORMALS: normocephalic and atraumatic HEAD & SCALP: normal to inspection, normocephalic and atraumatic Eye: COMMON NORMALS: no scleral icterus Neck/C-Spine: COMMON NORMALS: full ROM, no lymphadenopathy, supple and no meningeal signs Resp: COMMON NORMALS: normal respiratory effort and clear to auscultation bilaterally AUSCULTATION: clear to auscultation bilaterally Cardio: COMMON NORMALS: regular rate and regular rhythm RATE: regular rate RHYTHM: regular rhythm GI: COMMON NORMALS: Normal to inspection, nondistended, normoactive bowel sounds present, Soft to palpation, non-tender, No hepatosplenomegaly present and no masses PALPATION: Yes Soft to palpation and Yes No hepatosplenomegaly present : COMMON NORMALS: Yes no CVA tenderness BLADDER/KIDNEY EXAM: Yes no CVA tenderness Back/Pelvis: COMMON NORMALS: no CVA tenderness and thoracic and lumbar spine normal to inspection Extremity: COMMON NORMALS: normal to inspection GENERAL: Yes normal exam except as noted Neuro: MIAN COMA SCALE: document GCS findings Mian coma scale eye opening: Spontaneous Mian coma scale verbal response: Orientated Mian coma scale motor response: [place] commands [place] coma scale total score: 15 COMMON NORMALS: patient oriented x3 SENSORIUM/ORIENTATION: Yes alert, Yes oriented to person, Yes oriented to place and Yes oriented to time MENINGEAL SIGNS: Yes no meningeal signs Skin: COMMON NORMALS: no rashes or lesions noted GENERAL SKIN EXAM: no rashes or lesions noted Course Vital Signs: Vital signs: Vital Signs Temperature 98.2 F 08/26/23 11:41 Pulse Rate 70 08/26/23 13:36 Respiratory Rate 18 08/26/23 11:41 Blood Pressure 127/92 08/26/23 13:36 Pulse Oximetry 100 08/26/23 13:36 Oxygen Delivery Me thod Room Air 08/26/23 13:36 MDM - Female Medical Decision Making Patient reports she feels much better after 2 L of fluid. Her vital signs are stable. Blood work overall is unremarkable apart from some nonspecific elevations to her liver enzymes. She has a normal tbili but AST/ALT are 79/77 with an elevated alk phos at 245. She is status postcholecystectomy. Patient has no abdominal pain, nausea, vomiting. Acute hepatitis panel negative. Bactrim can cause some hepatotoxicity so we will change this to Cephalexin. Recommend primary care to repeat these labs in approximately 2 weeks or so. Her urine today was completely clear. Culture from previous UA was not obtained. Return ED precautions given. Lab Data 08/26/23 12:28 08/26/23 12:28 Laboratory Results WBC 6.28 10^3/uL (3.29-11.43) 08/26/23 12:28 RBC 4.62 10^6/uL (3.85-5.65) 08/26/23 12:28 Hgb 14.00 g/dL (11.27-16.99) 08/26/23 12:28 Hct 43.5 % (36-47) 08/26/23 12:28 MCV 94.2 fl (85-98) 08/26/23 12:28 MCH 30.3 pg (27-33) 08/26/23 12:28 MCHC 32.2 g/dL (30-55) 08/26/23 12:28 RDW 12.7 % (12.1-15.1) 08/26/23 12:28 Plt Count 275 10^3/cmm (157-399) 08/26/23 12:28 MPV 9.2 fL (7.4-10.4) 08/26/23 12:28 Neut % (Auto) 56.2 % 08/26/23 12: Lymph % (Auto) 34.1 % 08/26/23 12: Bound[place] % (Auto) 7.2 % 08/26/23 12: Eos % (Auto) 1.6 % 08/26/23 12:28 Baso % (Auto) 0.6 % 08/26/23 12:28 Neut # (Auto) 3.53 10^3/uL (1.8-7.7) 08/26/23 12:28 Lymph # (Auto) 2.1 10^3/uL (0.8-4.8) 08/26/23 12: Boundary # (Auto) 0.5 10^3/uL (0.2-0.9) 08/26/23 12: Eos # (Auto) 0.1 10^3/uL (0.0-0.8) 08/26/23 12: Baso # (Auto) 0.0 10^3/uL (0.0-0.1) 08/26/23 12: Nucleated RBC % (auto) 0 % 08/26/23 12: Nucleated RBCs # 0.0 /100WBC 08/26/23 12:28 Sodium 140 mmol/L (136-145) 08/26/23 12:28 Potassium 3.8 mmol/L (3.5-5.1) 08/26/23 12:28 Chloride 102 mmol/L (98-107) 08/26/23 12:28 Carbon Dioxide 28 mmol/L (22-29) 08/26/23 12:28 Anion Gap 13.8 (5-19) 08/26/23 12:28 BUN 10 mg/dL (6-20) 08/26/23 12:28 Creatinine 0.7 mg/dL (0.5-0.9) 08/26/23 12:28 GFR Calculation 88.9 mL/min (90-130) L 08/26/23 12:28 Glucose 84 mg/dL (65-115) 08/26/23 12:28 Calculated Osmolality 288 mOsm/kg (285-295) 08/26/23 12:28 Calcium 9.0 mg/dL (8.5-10.5) 08/26/23 12:28 Total Bilirubin 0.3 mg/dL (0.15-1.2) 08/26/23 12:28 AST 79 U/L (0-32) H 08/26/23 12:28 ALT 77 U/L (0-33) H 08/26/23 12:28 Alkaline Phosphatase 245 U/L (35-105) H 08/26/23 12:28 Total Protein 6.6 g/dL (6.6-8.7) 08/26/23 12:28 Albumin 4.2 g/dL (3.5-5.2) 08/26/23 12:28 Globulin 2.4 g/dL (1.3-4.6) 08/26/23 12:28 Urine Color Yellow (Yellow) 08/26/23 12:25 Urine Appearance Clear (CLEAR) 08/26/23 12:25 Urine pH 6 (5-7) 08/26/23 12:25 Ur Specific [place] 1.020 (1.005-1.030) 08/26/23 12:25 Urine Protein Neg (Negative) 08/26/23 12:25 Urine Glucose (UA) Norm (Normal) 08/26/23 12:25 Urine Ketones Negative (Negative) 08/26/23 12:25 Urine Blood Neg (Negative) 08/26/23 12:25 Urine Nitrate Negative (Negative) 08/26/23 12:25 Urine Bilirubin Neg (Negative) 08/26/23 12:25 Urine Urobilinogen Norm mg/dL (Negative) 08/26/23 12:25 Ur Leukocyte Esterase Negative (Negative) 08/26/23 12:25 Hepatitis A IgM Ab Non-reactive (Nonreactive) 08/26/23 12:28 Hep Bs Antigen Non-reactive (Nonreactive) 08/26/23 12:28 Hep B Core IgM Ab Non-reactive (Nonreactive) 08/26/23 12:28 Hepatitis C Antibody Non-reactive (Nonreactive) 08/26/23 12:28 No radiology studies performed this visit Discharge Plan Discharge Patient Disposition: Home Clinical Impression: Dehydration, Dysuria, Elevated LFTs Condition: Stable Prescriptions: New cephalexin 500 mg capsule 500 mg PO Q6H 7 Days Qty: 28 0RF Discontinued sulfamethoxazole-trimethoprim [Bactrim DS] 800-160 mg tablet 1 tab PO BID Qty: 14 0RF No Action folic acid 1 mg tablet 1 mg PO DAILY Qty: 30 3RF ondansetron HCl 8 mg tablet See Rx Instructions .ROUTE .COMPLEX Qty: 30 2RF Dose Instruction: TAKE ONE TABLET BY MOUTH EVERY 8 HOURS NEEDED FOR NAUSEA AND VOMITING. Rx Instructions: TAKE ONE TABLET BY MOUTH EVERY 8 HOURS NEEDED FOR NAUSEA AND VOMITING. cyanocobalamin (vitamin B-12) 1,000 mcg/mL solution See Rx Instructions .ROUTE .COMPLEX Qty: 1 6RF Dose Instruction: inject 1000 mcg intramuscularly weekly. Rx Instructions: inject 1000 mcg intramuscularly weekly. diphenoxylate-atropine 2.5-0.025 mg Tablet 1 tab PO QID PRN (Reason: Diarrhea) acetaminophen 325 mg Capsule 650 mg PO QID PRN (Reason: Pain) Women's Multivitamin 18 mg iron-400 mcg-500 mg Tablet 1 tab PO DAILY Discharge Orders: Discharge ED (Routine); Ordered 08/26/23 Ordered By: Delisa Ruff Referrals: Pauly Fischer MD [Primary Care Provider] - Activity Restrictions/Additional Instructions: As we discussed please discontinue your Bactrim as this could be the culprit of your elevated liver enzymes today. We will place you on a different antibiotic for continued treatment of your urinary tract infection. As we discussed I would like primary care to repeat liver enzymes in approximately 2 weeks. Certainly if you begin developing severe abdominal pain, nausea, vomiting, diarrhea, significantly dark urine, yellowing to your skin or eyes you need to return to the emergency department. Coding Level of Care Code ED Frame Pulley Mortising Machine Operator for Amada Ramirez
[2023-08-26] MEDS: sodium chloride 0.9% 1,000 ML 999 ML IV ×2 (12:34→13:21)
[2023-08-26 12:38] LABS: Basophils % 0.6 %; Eosinophils # 0.1 10^3/uL (0.0-0.8); Eosinophils % 1.6 %; Hematocrit 43.5 % (36-47); Lymphocytes # 2.1 10^3/uL (0.8-4.8); Lymphocytes % 34.1 %; Mean Corpuscular HGB Conc 32.2 g/dL (30-55); Mean Corpuscular Hemoglobin 30.3 pg (27-33); Mean Corpuscular Volume 94.2 fl (85-98); Mean Platelet Volume 9.2 fL (7.4-10.4); Monocytes # 0.5 10^3/uL (0.2-0.9); Monocytes % 7.2 %; Neutrophils # 3.53 10^3/uL (1.8-7.7); Neutrophils % 56.2 %; Nucleated Red Blood Cells % 0 %; Platelet Count 275 10^3/cmm (157-399); Red Blood Count 4.62 10^6/uL (3.85-5.65); Red Cell Distribution Width 12.7 % (12.1-15.1); White Blood Count 6.28 10^3/uL (3.29-11.43)
[2023-08-26 12:47] LABS: Add Urine Microscopic? NO; Charge for UA Resulting for Rev
[2023-08-26 12:55] LABS: Bilirubin Urine Neg (Negative); Blood Urine Neg (Negative); Glucose Urine UA Norm (Normal); Ketones Urine Negative (Negative); Leukocyte Esterase Urine Negative (Negative); Nitrate Urine Negative (Negative); Protein Urine Neg (Negative); Urine Appearance Clear (CLEAR); Urine Color Yellow (Yellow); Urobilinogen Urine Norm (Negative); pH Urine 6 (5-7)
[2023-08-26 12:57] LABS: Alanine Aminotransferase 77 U/L (0-33); Albumin Level 4.2 g/dL (3.5-5.2); Alkaline Phosphatase 245 U/L (35-105); Anion Gap 13.8 (5-19); Aspartate Amino Transferase 79 U/L (0-32); Blood Urea Nitrogen 10 mg/dL (6-20); Carbon Dioxide 28 mmol/L (22-29); Chloride 102 mmol/L (98-107); Globulin 2.4 g/dL (1.3-4.6); Glomerular Filtration Rate 88.9 mL/min (90-130); Glucose 84 mg/dL (65-115); Osmolality Calculated 288 mOsm/kg (285-295); Potassium 3.8 mmol/L (3.5-5.1); Sodium 140 mmol/L (136-145); Total Bilirubin 0.3 mg/dL (0.15-1.2); Total Protein 6.6 g/dL (6.6-8.7)
[2023-08-26 13:36] VITALS: BP 127/92; PULSE 70; O2SAT 100
[2023-08-26 13:49] LABS: Hepatitis A Antibody IgM Non-Reactive (Nonreactive); Hepatitis B Core IgM Non-Reactive (Nonreactive); Hepatitis B Surface Antigen Non-Reactive (Nonreactive); Hepatitis C Virus Antibody Non-Reactive (Nonreactive)
== END 2023-08-26 14:49 | disposition home or self-care (01) ==
PROVIDERS: Emergency Provider Physician Assistant; PCP Family Medicine
DX: E86.0 Dehydration (principal); R30.0 Dysuria; R79.89 Other specified abnormal findings of blood chemistry
CPT/HCPCS: 80053; 80074; 81000; 81003; 85025; 96360; 99284; J7030

== ENCOUNTER → 2023-09-24 11:58 | Outpatient (BNVA) | payer BC, SELFPAY | PROVIDERS: PCP Family Medicine; Visit Provider Family Medicine | DX: E53.8 Deficiency of other specified B group vitamins (principal); Z90.3 Acquired absence of stomach [part of] | CPT/HCPCS: 80053; 82607; 82746 ==

== ENCOUNTER → 2023-10-29 12:12 | Outpatient (BNVA) | payer BC, SELFPAY | PROVIDERS: PCP Family Medicine; Visit Provider Family Medicine | DX: Z90.3 Acquired absence of stomach [part of] (principal); Z79.899 Other long term (current) drug therapy | CPT/HCPCS: 80053; 80061; 82306; 82607; 82746; 83540; 85025 ==

== ENCOUNTER → 2024-01-08 12:40 | Outpatient (BNVA) | payer BC, SELFPAY | PROVIDERS: PCP Family Medicine; Visit Provider Family Medicine | DX: E53.8 Deficiency of other specified B group vitamins (principal) | CPT/HCPCS: 80053; 82746; 85025 ==

== ENCOUNTER → 2024-01-19 09:59 | Outpatient (BNVA) | payer BC, SELFPAY | PROVIDERS: PCP Family Medicine; Visit Provider Nurse Practitioner Family | DX: R30.0 Dysuria (principal) | CPT/HCPCS: 81003 ==

== ENCOUNTER → 2024-05-04 14:50 | Outpatient (BNVA) | payer BC, SELFPAY | PROVIDERS: PCP Family Medicine; Visit Provider Nurse Practitioner Family | DX: N39.0 Urinary tract infection, site not specified; R31.9 Hematuria, unspecified; E78.2 Mixed hyperlipidemia | CPT/HCPCS: 80053; 80061; 85025 ==

== ENCOUNTER → 2024-08-23 13:17 | Outpatient (BNVA) | payer BC, SELFPAY | PROVIDERS: PCP Family Medicine; Visit Provider Nurse Practitioner Family | DX: R30.0 Dysuria (principal) | CPT/HCPCS: 81003; 87086 ==